=== PATIENT | male | born 1995 | race Caucasian/White ===

== ENCOUNTER 2024-12-21 11:11 | Outpatient (CLI) | payer OTHER, SELFPAY ==
--- NOTE | 2024-12-21 11:30 | CRLHL7_ITS ---
For Patients: As a result of the Century Cures Act, medical imaging exams and procedure reports are released immediately into your electronic medical record. You may view this report before your referring provider. If you have questions, please contact your health care provider. Indication: Mobile lump in the left lower back Technique: Grayscale ultrasound of the left lower back soft tissues performed. Comparison: None Findings: No fluid collection or mass. No shadowing lesion. There is some nonspecific thickening of the fascial layers. Impression: No suspicious findings are present. If clinical concern persists, could consider CT for further evaluation. Dictated by Brennon Cheatham MD @ 12/21/2024 11:56:45 AM (Electronically Signed)
== END 2024-12-21 11:12 | disposition home or self-care (01) ==
PROVIDERS: PCP Nurse Practitioner Family; Visit Provider Nurse Practitioner Family
DX: R22.2 Localized swelling, mass and lump, trunk (principal)
CPT/HCPCS: 76705

== ENCOUNTER 2024-12-28 16:31 | Outpatient (CLI) | payer OTHER, SELFPAY ==
--- NOTE | 2024-12-28 16:45 | CRLHL7_ITS ---
For Patients: As a result of the Century Cures Act, medical imaging exams and procedure reports are released immediately into your electronic medical record. You may view this report before your referring provider. If you have questions, please contact your health care provider. INDICATION: Abdominal wall mass, left flank area TECHNIQUE: CT abdomen and pelvis acquired with 126 mL Isovue 370 IV contrast. COMPARISON: 12/21/2024 ultrasound FINDINGS: Lower chest: Unremarkable. Liver: A small cyst in the right hepatic lobe. Gallbladder and bile ducts: Unremarkable. No stones or inflammation. No biliary dilatation. Pancreas: Unremarkable. No mass or inflammation. Spleen: Unremarkable. Normal in size. No masses. Adrenal glands: Unremarkable. No nodules. Kidneys: Unremarkable. No masses, stones, or hydronephrosis. GI tract: Mild sigmoid diverticulosis. Normal appendix. Vasculature: Unremarkable. Mesenteric arteries are patent. Lymph nodes: No lymphadenopathy. Omentum/Peritoneum/Abdominal Wall: No abdominal wall masses visible although portions of the flanks were not included in the field of view. Pelvis: Unremarkable. Bones: Unremarkable for age. IMPRESSION: 1. No abdominal wall mass in the field of view. 2. Mild sigmoid diverticulosis. No diverticulitis. Please note that all CT scans at this facility use dose modulation, iterative reconstruction, and/or weight-based dosing when appropriate to reduce radiation dose to as low as reasonably achievable. Dictated by Jordan Mendoza MD @ 01/01/2025 11:59:50 AM (Electronically Signed)
== END 2024-12-28 16:32 | disposition home or self-care (01) ==
LOC: CT 16:32
PROVIDERS: PCP Nurse Practitioner Family; Visit Provider Nurse Practitioner Family
DX: R19.00 Intra-abdominal and pelvic swelling, mass and lump, unspecified site (principal); K57.30 Diverticulosis of large intestine without perforation or abscess without bleeding
CPT/HCPCS: 74177; Q9967

== ENCOUNTER 2025-02-06 15:09 | Outpatient (CLI) | payer OTHER, SELFPAY ==
--- NOTE | 2025-02-06 15:30 | CRLHL7_ITS ---
For Patients: As a result of the Century Cures Act, medical imaging exams and procedure reports are released immediately into your electronic medical record. You may view this report before your referring provider. If you have questions, please contact your health care provider. INDICATION: Abdominal swelling/mass. TECHNIQUE: Noncontrast CT of the abdominal wall. Axial, sagittal and coronal T1, T2 and T2 fat-sat images were acquired. Marker placed at site of patient`s mass. 1.5 giselle MRI scanner. COMPARISON: CT from 12/28/2024. Ultrasound from 12/21/2024. FINDINGS: There is a partially circumscribed area of subcutaneous fat involving the left posterior lower back which measures approximately 4.5 x 3 x 1.3 centimeters in size. This is subtly apparent on coronal T1 image number 29 of series 8 and sagittal T1 image number 10 of series 6. This is present adjacent to a marker placed at the site of the patient`s mass. There are no thick septal or nodular elements to suggest de differentiation and the appearance is most compatible with a subcutaneous lipoma. No deeper soft tissue mass or fluid collection. IMPRESSION: 1. 4.5 cm area of partially circumscribed subcutaneous fat involving the left posterior lower back underlying a marker placed at site of patient`s mass. Appearance most compatible with a subcutaneous lipoma. There are no worrisome features to suggest dedifferentiation. Dictated by Shaji Martinez MD @ 02/08/2025 8:18:40 AM (Electronically Signed)
== END 2025-02-06 15:10 | disposition home or self-care (01) ==
LOC: MRI 15:10
PROVIDERS: PCP Nurse Practitioner Family; Visit Provider Nurse Practitioner Family
DX: R19.00 Intra-abdominal and pelvic swelling, mass and lump, unspecified site (principal)
CPT/HCPCS: 73218

== ENCOUNTER 2025-02-28 06:05 | Day surgery (SDC) | payer OTHER, SELFPAY ==
[2025-02-28 06:43] VITALS: BMI 38.5
[2025-02-28 07:08] VITALS: BP 144/93; PULSE 85; RESP 16; TEMP 36.7; O2SAT 95
[2025-02-28] MEDS: SODIUM CHLORIDE 0.9 % (FLUSH) 10 ML SYRINGE IVF (07:09)
[2025-02-28] MEDS: LACTATED RINGERS 1000 ML 1,000 ML 100 ML IV (07:09)
--- NOTE | 2025-02-28 07:26 | W.PM.H&PU ---
History & Physical Update History & Physical Update H&P Reviewed and patient assessed: No changes noted
--- NOTE | 2025-02-28 07:53 | P.ANES_ITS ---
Anesthesia Charges Start Date/Time Anesthesia Start Date: 02/28/25 Anesthesia Start Time: 07:30 Stop Date/Time Anesthesia Stop Date: 02/28/25 Anesthesia Stop Time: 08:33 Coding CPT Codes CPT Codes: ANESTH HEAD/NECK/PTRUNK - 71633 ([id number]) P3 - PATIENT W/SEVERE SYS DISEASE, QK - CAPACITOR REPAIRER 2-4 CNCRNT ANES PROC, QX - SYRUP MIXER ASSISTANT SVC W/ MD MED DIRECTION
--- NOTE | 2025-02-28 07:53 | W.ANESCHARGE ---
Anesthesia Charges Start Date/Time Anesthesia Start Date: 02/28/25 Anesthesia Start Time: 07:30 Stop Date/Time Anesthesia Stop Date: 02/28/25 Anesthesia Stop Time: 08:33 Coding CPT Codes CPT Codes: ANESTH HEAD/NECK/PTRUNK - 04921 ([id number]) P3 - PATIENT W/SEVERE SYS DISEASE, QK - TELEVISION HOST 2-4 CNCRNT ANES PROC, QX - MODERN AND CONTEMPORARY ART CURATOR SVC W/ MD MED DIRECTION
[2025-02-28] MEDS: LIDOCAINE 1%-EPI 1:100,000 20 ML INFILTRATI (08:18)
[2025-02-28] MEDS: BUPIVACAINE 0.25% 30 ML INJECTION (08:18)
--- NOTE | 2025-02-28 08:23 | PM.GSPRC ---
Operative Note Date of procedure: 02/28/25 Pre-op diagnosis: Left lower back mass Post-op diagnosis: Same, lipoma Type of Procedure: Excision of left lower back mass Indications: Patient is a 29-year-old male who presented to clinic with a symptomatic mass in his left lower back. Different treatment options were discussed, please see consultation note for full recommendations. Risks and benefits of operative intervention were discussed at length with the patient. Risks included but was not limited to: Bleeding, infection, risk of damage to surrounding structures, possible need for additional procedures, possibility this may not improve all of the patient's symptoms and postoperative complications such as pneumonia, pulmonary emboli or [place]. All questions and concerns were addressed with the patient agreeing to proceed. Procedure Description: After discussing the risks and benefits of the procedure, the patient signed informed consent.? The operative site was marked and the patient was brought to the operating room and placed left lateral decubitus.? Care was taken to pad the patient's pressure points.?? The patient was then given sedation by anesthesia.?? The operative site was then prepped and draped in the usual sterile fashion.? A time-out was then performed. A mixture of 0.25% Marcaine and 1% lidocaine was used to anesthetize the surgical field. A transverse incision was made over the marked area in the left lower back. Dissection was carried down through subcutaneous tissue with cautery. Multi lobulated, encapsulated mature fat was encountered. This was consistent with a benign lipoma. It was removed in a piecemeal fashion. Total size of the mass removed was approximately 5 x 4 x 2 cm in size. The cavity was then thoroughly palpated with no other masses or lesions identified. The cavity was irrigated and hemostasis assured. Additional local anesthetic was given. The incision was closed in layers of interrupted 3-0 Vicryl and running 4-0 Monocryl suture. The incision length was 7 cm. Sterile dressings were then applied. ? The patient was then woken and transported to the recovery area in stable condition. ? The patient tolerated the procedure well. Findings: Lipoma of the left lower back Anesthesia: MAC and local Surgeon: Genevieve Fu MD Estimated blood loss (mL): 5 Additional Specimen Information: Left lower back lipoma Condition: stable Disposition: same day
[2025-02-28 08:30] VITALS: BP 129/76; PULSE 87; RESP 16; TEMP 36.4; O2SAT 95
--- NOTE | 2025-02-28 08:36 | P.ANES_ITS ---
Anesthesia Charges Start Date/Time Anesthesia Start Date: 02/28/25 Anesthesia Start Time: 07:30 Stop Date/Time Anesthesia Stop Date: 02/28/25 Anesthesia Stop Time: 08:33 Coding CPT Codes CPT Codes: ANESTH HEAD/NECK/PTRUNK - 47159 ([id number]) P3 - PATIENT W/SEVERE SYS DISEASE, QK - DATABASE ANALYST 2-4 CNCRNT ANES PROC
--- NOTE | 2025-02-28 08:36 | W.ANESCHARGE ---
Anesthesia Charges Start Date/Time Anesthesia Start Date: 02/28/25 Anesthesia Start Time: 07:30 Stop Date/Time Anesthesia Stop Date: 02/28/25 Anesthesia Stop Time: 08:33 Coding CPT Codes CPT Codes: ANESTH HEAD/NECK/PTRUNK - 65352 ([id number]) P3 - PATIENT W/SEVERE SYS DISEASE, QK - NUCLEAR OPERATIONS SPECIALIST 2-4 CNCRNT ANES PROC
[2025-02-28 08:45] VITALS: BP 105/82; PULSE 77; RESP 16; O2SAT 95
[2025-02-28 09:00] VITALS: BP 120/86; PULSE 76; RESP 16; O2SAT 96
[2025-02-28 09:15] VITALS: BP 111/78; PULSE 72; RESP 16; O2SAT 98
[2025-02-28 09:30] VITALS: BP 105/72; PULSE 74; RESP 16; O2SAT 97
== END 2025-02-28 09:35 | disposition home or self-care (01) ==
PROVIDERS: PCP Nurse Practitioner Family; Visit Provider Surgery
PROC: (CPT 21931; principal; 2025-02-28 07:30)
DX: D17.1 Benign lipomatous neoplasm of skin and subcutaneous tissue of trunk (principal)
CPT/HCPCS: 21931; 00300; 88304; J0665; J0690; J1100; J2250; J2405; J2704; J3010; J3490; J7120